=== PATIENT | male | born 1960 | race Caucasian/White ===

== ENCOUNTER 2023-04-28 07:31 | Outpatient (CLI) | payer OTHER, SELFPAY ==
--- NOTE | ~2023-04-28 | MR_ITS ---
MRI of the right knee Clinical history: Pain Technique: Coronal proton density and proton density-weighted images, sagittal proton-density and T2 fat-sat images, and axial proton-density fat-saturated images were acquired. Findings: Anterior and posterior cruciate ligaments are intact. Medial collateral ligament and the la teral collateral ligament complex are intact. Popliteus tendon is intact. Medial and lateral menisci are intact, without evidence of tear. There is a 5 mm grade 4 chondral lesion at the central aspect of the medial femoral condyle with prom inent surrounding subjacent subchondral marrow edema. Articular cartilage in the lateral compartmenta l preserved. 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 Extensor mechanism is intact. Moderate joint effusion present. There is a multiseptated small to mode rate Alejandro's cyst. 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 Moderate joint effusion with multiseptated [id number] Alejandro's cyst. Extensive chondromalacia patella, as detailed above. Reviewed, dictated and finalized at location M. 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 Moderate joint effusion with multiseptated leerv-bi-pszedewq Alejandro's cyst. Extensive chondromalacia patella, as detailed above.
== END 2023-04-28 07:32 ==
LOC: MICIMG 07:34
DX: M94.261 Chondromalacia, right knee (principal); G89.29 Other chronic pain; M25.461 Effusion, right knee; M71.22 Synovial cyst of popliteal space [Baker], left knee
CPT/HCPCS: 73721

== ENCOUNTER 2024-07-23 14:10 | Emergency (ER) | payer OTHER, SELFPAY ==
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
[2024-07-23 14:24] VITALS: BP 140/72; PULSE 77; RESP 16; TEMP 36.7; O2SAT 97
== END 2024-07-23 15:35 | disposition home or self-care (01) ==
PROVIDERS: Emergency Provider Nurse Practitioner Family
DX: S62.337A Displaced fracture of neck of fifth metacarpal bone, left hand, initial encounter for closed fracture (principal); V18.4XXA Pedal cycle driver injured in noncollision transport accident in traffic accident, initial encounter; Y93.55 Activity, bike riding
CPT/HCPCS: 29125; 73130; 99204; A4565; G0463